=== PATIENT | male | born 1975 | race Native Hawaiian/Other Pacific Islander ===

== ENCOUNTER 2017-05-20 12:27 | Emergency (ER) | payer OTHER ==
[~2017-05-20] VITALS: Ht 180.3 cm; Wt 104.3 kg
[2017-05-20 13:01] LABS: PLATELET COUNT 163 K/uL (142-355)
[2017-05-20 17:35] VITALS: BP 181/76; TEMP 98.2
== END 2017-05-20 17:35 | disposition home or self-care (01) ==
LOC: ED 12:27
DX: K85.90 Acute pancreatitis without necrosis or infection, unspecified (principal); R10.9 Unspecified abdominal pain; I71.9 Aortic aneurysm of unspecified site, without rupture
CPT/HCPCS: 80053; 82150; 83690; 85027; 99284; Q9963